=== PATIENT | male | born 1960 | race Caucasian/White ===

== ENCOUNTER 2017-02-24 12:14 | Emergency (ER) | payer OTHER ==
[~2017-02-24] VITALS: Ht 172.7 cm; Wt 88.5 kg
[~2017-02-24 12:14] MED LIST: ECO81 PO; LEXAPRO10 MG PO; MOTRIN800 MG PO; PRILOSEC20 MG PO
[2017-02-24 12:19] VITALS: BP 167/99
== END 2017-02-24 12:55 | disposition home or self-care (01) ==
LOC: ED 12:14
DX: H10.13 Acute atopic conjunctivitis, bilateral (principal); E11.9 Type 2 diabetes mellitus without complications; I10 Essential (primary) hypertension; E78.00 Pure hypercholesterolemia, unspecified; I25.10 Atherosclerotic heart disease of native coronary artery without angina pectoris; L80 Vitiligo

== ENCOUNTER 2017-03-30 09:31 | Inpatient (IN) | payer OTHER ==
[~2017-03-30] VITALS: Ht 170.2 cm; Wt 89.5 kg
[2017-03-30 10:46] LABS: BASOPHIL % 0.7 % (0-2); PLATELET COUNT 210 x10^3mcL (130-400); RED CELL DISTRIBUTION WIDTH 13.1 % (11.5-14.5)
[2017-03-30 11:00] LABS: FREE T4 1.12 ng/dL (0.76-1.46); FREE THYROXINE INDEX 2.2 ug/dL (1.4-4.5)
[2017-03-30 11:01] LABS: CALCIUM 8.3 mg/dL (8.5-10.1); CARBON DIOXIDE 25.7 mmol/L (21-32); CHLORIDE SERUM 105 mmol/L (98-107); CREATININE SERUM 0.7 mg/dL (0.7-1.3); GFR1 > 60 mL/min; GLUCOSE SERUM 168 mg/dL (74-106); POTASSIUM SERUM 3.6 mmol/L (3.5-5.1); SODIUM SERUM 138 mmol/L (136-145)
[2017-03-30 11:06] LABS: ALKALINE PHOSPHATASE 96 U/L (46-116); ALT/SGPT 14 U/L (16-63); AST/SGOT 10 U/L (15-37); BILIRUBIN TOTAL 0.5 mg/dL (0.20-1.00); CHOLESTEROL 139 mg/dL (<200); CHOLESTEROL/HDL RATIO 3.2; HDL CHOLESTEROL 44 mg/dL (40-60); LIPASE 85 IU/L (73-393); TOTAL PROTEIN, SERUM 6.2 g/dL (6.4-8.2); TRIGLYCERIDES 63 mg/dL (<150)
[2017-03-30 11:07] LABS: ALBUMIN 3.1 g/dL (3.4-5.0)
[2017-03-30 11:08] LABS: T3 TOTAL 0.99 ng/mL
[2017-03-30 13:21] LABS: PHOSPHOROUS 2.6 mg/dL (2.5-4.9)
[2017-03-30 13:58] LABS: microscopic required? NO
[2017-03-30 14:14] LABS: urine erythrocyte NEGATIVE (NEGATIVE)
[2017-03-30 14:34] LABS: AMPHETAMINE QUAL UR NONE DETECTED (NEG <=1000)
[2017-03-30] MEDS ORDERED: INSULIN (14:45)
[2017-03-30 15:08] VITALS: BP 146/97
[2017-03-30 17:14] VITALS: BP 146/97
[2017-03-30 17:41] VITALS: BP 139/90
[2017-03-30 22:05] VITALS: BP 150/92
[2017-03-31 05:05] VITALS: BP 118/70
[2017-03-31 07:40] LABS: BASOPHIL % 0.4 % (0-2); PLATELET COUNT 196 x10^3mcL (130-400); RED CELL DISTRIBUTION WIDTH 12.7 % (11.5-14.5)
[2017-03-31 07:43] VITALS: BP 132/88
[2017-03-31 08:00] LABS: CALCIUM 7.6 mg/dL (8.5-10.1); CARBON DIOXIDE 25.6 mmol/L (21-32); CHLORIDE SERUM 106 mmol/L (98-107); CREATININE SERUM 0.6 mg/dL (0.7-1.3); GFR1 > 60 mL/min; GLUCOSE SERUM 162 mg/dL (74-106); MAGNESIUM 2.1 mg/dL (1.8-2.4); PHOSPHOROUS 2.5 mg/dL (2.5-4.9); POTASSIUM SERUM 3.8 mmol/L (3.5-5.1); SODIUM SERUM 138 mmol/L (136-145)
[2017-03-31 17:04] VITALS: BP 122/80
[2017-03-31 21:25] VITALS: BP 124/70
[2017-04-01 05:17] VITALS: BP 140/87
[2017-04-01 06:17] LABS: BASOPHIL % 0.4 % (0-2); PLATELET COUNT 199 x10^3mcL (130-400); RED CELL DISTRIBUTION WIDTH 12.3 % (11.5-14.5)
[2017-04-01 06:19] LABS: CALCIUM 7.7 mg/dL (8.5-10.1); CARBON DIOXIDE 24.2 mmol/L (21-32); CHLORIDE SERUM 105 mmol/L (98-107); CREATININE SERUM 0.6 mg/dL (0.7-1.3); GFR1 > 60 mL/min; GLUCOSE SERUM 155 mg/dL (74-106); POTASSIUM SERUM 3.4 mmol/L (3.5-5.1); SODIUM SERUM 138 mmol/L (136-145)
[2017-04-01 06:20] LABS: ALBUMIN 2.5 g/dL (3.4-5.0)
[2017-04-01 08:06] VITALS: Ht 170.2 cm; Wt 89.5 kg
[2017-04-01 09:16] VITALS: BP 130/79
[2017-04-01] MEDS ORDERED: ATORVASTATIN CA40 M1 PO (14:54)
[2017-04-01] MEDS ORDERED: LAC15L PO (14:55)
[2017-04-01] MEDS ORDERED: COREG12.5 MG PO (14:55)
[2017-04-01] MEDS ORDERED: THERA TABS1 TAB PO (14:56)
[2017-04-01] MEDS ORDERED: GLU850 PO (14:56)
[2017-04-01] MEDS ORDERED: LAC PO (14:57)
[2017-04-01] MEDS ORDERED: FLA500 PO (14:58)
[2017-04-01] MEDS ORDERED: LEVAQUIN750 MG PO (14:58)
[2017-04-01 15:27] VITALS: BP 130/79
== END 2017-04-01 16:13 | disposition home or self-care (01) | DRG 244 ==
LOC: ED 09:31 → DU 12:19 → MU 12:19 → DU 14:37 → MU 03-31 19:16
PROVIDERS: Family Medicine; Specialist; ADMIT Family Medicine
DX: K57.32 Diverticulitis of large intestine without perforation or abscess without bleeding (principal); E43 Unspecified severe protein-calorie malnutrition; E11.65 Type 2 diabetes mellitus with hyperglycemia; K72.90 Hepatic failure, unspecified without coma; E11.9 Type 2 diabetes mellitus without complications; I10 Essential (primary) hypertension; D64.9 Anemia, unspecified; K21.9 Gastro-esophageal reflux disease without esophagitis; F32.9 Major depressive disorder, single episode, unspecified; F10.20 Alcohol dependence, uncomplicated; Y90.9 Presence of alcohol in blood, level not specified; E78.00 Pure hypercholesterolemia, unspecified; F17.210 Nicotine dependence, cigarettes, uncomplicated; L80 Vitiligo; E83.51 Hypocalcemia; E78.5 Hyperlipidemia, unspecified; E87.6 Hypokalemia; Z83.3 Family history of diabetes mellitus; Z68.30 Body mass index [BMI] 30.0-30.9, adult; Z82.49 Family history of ischemic heart disease and other diseases of the circulatory system
CPT/HCPCS: 82962; 83880; 84439; C9113; G0480; J1956; J2270; J2405; J2543; J3010; J3411; J3475; J3490; J7030; J7042; J7620; Q0092; Q9967

== ENCOUNTER 2017-07-28 16:30 | Emergency (ER) | payer OTHER ==
[~2017-07-28 16:30] MED LIST changes: +ATORVASTATIN CA40 M1 PO; +COREG12.5 MG PO; +FLA500 PO; +GLU850 PO; +INSULIN; +LAC PO; +LAC15L PO; +LEVAQUIN750 MG PO; +THERA TABS1 TAB PO
[2017-07-28 20:50] VITALS: BP 147/97
== END 2017-07-28 20:50 | disposition home or self-care (01) ==
LOC: ED 16:30
DX: S05.42XA Penetrating wound of orbit with or without foreign body, left eye, initial encounter (principal); I10 Essential (primary) hypertension; E11.9 Type 2 diabetes mellitus without complications; Z95.5 Presence of coronary angioplasty implant and graft; W22.8XXA Striking against or struck by other objects, initial encounter; Y93.89 Activity, other specified; Y99.8 Other external cause status; Y92.89 Other specified places as the place of occurrence of the external cause
CPT/HCPCS: 90714

== ENCOUNTER 2017-09-25 17:54 | Emergency (ER) | payer OTHER ==
[2017-09-25 20:52] VITALS: BP 145/99
== END 2017-09-25 22:11 | disposition home or self-care (01) ==
LOC: ED 17:54
DX: S40.022A Contusion of left upper arm, initial encounter (principal); I25.10 Atherosclerotic heart disease of native coronary artery without angina pectoris; E11.9 Type 2 diabetes mellitus without complications; I10 Essential (primary) hypertension; E78.00 Pure hypercholesterolemia, unspecified; L80 Vitiligo; F17.210 Nicotine dependence, cigarettes, uncomplicated; Z95.5 Presence of coronary angioplasty implant and graft; Z79.4 Long term (current) use of insulin; W20.8XXA Other cause of strike by thrown, projected or falling object, initial encounter; Y93.89 Activity, other specified; Y92.89 Other specified places as the place of occurrence of the external cause; Y99.8 Other external cause status

== ENCOUNTER 2018-03-17 12:10 | Emergency (ER) | payer OTHER ==
[~2018-03-17] VITALS: Ht 165.1 cm; Wt 90.0 kg
[2018-03-17 12:14] VITALS: Ht 165.1 cm; Wt 90.0 kg
[2018-03-17 13:02] VITALS: BP 140/89
== END 2018-03-17 13:02 | disposition home or self-care (01) ==
LOC: ED 12:10
DX: A60.01 Herpesviral infection of penis (principal); I10 Essential (primary) hypertension; E11.9 Type 2 diabetes mellitus without complications

== ENCOUNTER 2018-05-28 08:29 | Inpatient (IN) | payer OTHER ==
[~2018-05-28] VITALS: Ht 167.6 cm; Wt 83.5 kg
[2018-05-28 08:35] VITALS: Ht 167.6 cm; Wt 83.5 kg
[2018-05-28 09:49] LABS: BASOPHIL % 1.6 % (0-2); PLATELET COUNT 142 x10^3mcL (130-400)
[2018-05-28 10:09] LABS: CALCIUM 7.1 mg/dL (8.5-10.1); CARBON DIOXIDE 17.4 mmol/L (21-32); CHLORIDE SERUM 101 mmol/L (98-107); CREATININE SERUM 0.6 mg/dL (0.7-1.3); GFR1 > 60 mL/min; GLUCOSE SERUM 404 mg/dL (74-106); POTASSIUM SERUM 3.5 mmol/L (3.5-5.1); SODIUM SERUM 132 mmol/L (136-145)
[2018-05-28 10:12] LABS: microscopic required? NO
[2018-05-28 10:15] LABS: ALKALINE PHOSPHATASE 323 U/L (46-116); AMYLASE 25 U/L (25-115); BILIRUBIN TOTAL 0.6 mg/dL (0.20-1.00); CHOLESTEROL 176 mg/dL (<200); LIPASE 127 IU/L (73-393)
[2018-05-28 10:22] LABS: ALBUMIN 2.2 g/dL (3.4-5.0); HDL CHOLESTEROL 14 mg/dL (40-60); TOTAL PROTEIN, SERUM 5.7 g/dL (6.4-8.2)
[2018-05-28 10:40] LABS: urine erythrocyte NEGATIVE (NEGATIVE)
[2018-05-28 11:03] LABS: ALT/SGPT 21 U/L (16-63); AST/SGOT 32 U/L (15-37)
[2018-05-28 11:17] LABS: AMPHETAMINE QUAL UR NONE DETECTED (See below)
[2018-05-28 11:22] LABS: MAGNESIUM 1.7 mg/dL (1.8-2.4); PHOSPHOROUS 3.3 mg/dL (2.5-4.9)
[2018-05-28] MEDS ORDERED: LANTUS SOLOS100 U/M1 SC (11:23)
[2018-05-28] MEDS ORDERED: METFORMIN HCL750 MG PO (11:23)
[2018-05-28 11:33] LABS: FREE T4 1.18 ng/dL (0.76-1.46); T3 TOTAL 0.63 ng/mL
[2018-05-28 11:53] LABS: FREE THYROXINE INDEX 1.3 ug/dL (1.4-4.5)
[2018-05-28 12:11] VITALS: BP 143/104
[2018-05-28 18:54] VITALS: BP 132/83
[2018-05-28 21:23] VITALS: BP 127/78
[2018-05-29 05:54] VITALS: BP 114/79
[2018-05-29 06:48] LABS: BASOPHIL % 0.7 % (0-2)
[2018-05-29 06:55] LABS: PLATELET COUNT 122 x10^3mcL (130-400); RED CELL DISTRIBUTION WIDTH 14.9 % (11.5-14.5)
[2018-05-29 07:10] LABS: CALCIUM 7.4 mg/dL (8.5-10.1); CARBON DIOXIDE 22.7 mmol/L (21-32); CHLORIDE SERUM 106 mmol/L (98-107); CREATININE SERUM 0.5 mg/dL (0.7-1.3); GFR1 > 60 mL/min; GLUCOSE SERUM 96 mg/dL (74-106); MAGNESIUM 1.6 mg/dL (1.8-2.4); PHOSPHOROUS 3.1 mg/dL (2.5-4.9); SODIUM SERUM 137 mmol/L (136-145)
[2018-05-29 07:35] LABS: POTASSIUM SERUM 2.9 mmol/L (3.5-5.1)
[2018-05-29 10:07] VITALS: BP 118/63
[2018-05-29 14:05] VITALS: BP 122/60
[2018-05-29 17:21] VITALS: BP 116/60
[2018-05-29 18:56] LABS: CALCIUM 7.8 mg/dL (8.5-10.1); CARBON DIOXIDE 22.9 mmol/L (21-32); CHLORIDE SERUM 103 mmol/L (98-107); GFR1 > 60 mL/min; GLUCOSE SERUM 272 mg/dL (74-106); POTASSIUM SERUM 3.7 mmol/L (3.5-5.1); SODIUM SERUM 133 mmol/L (136-145)
[2018-05-29 21:26] VITALS: BP 123/66
[2018-05-30 05:26] VITALS: BP 127/84
[2018-05-30 07:25] LABS: BASOPHIL % 0.7 % (0-2)
[2018-05-30 07:28] LABS: PLATELET COUNT 125 x10^3mcL (130-400)
[2018-05-30 07:52] LABS: CALCIUM 7.6 mg/dL (8.5-10.1); CARBON DIOXIDE 24.6 mmol/L (21-32); CHLORIDE SERUM 106 mmol/L (98-107); CREATININE SERUM 0.7 mg/dL (0.7-1.3); GFR1 > 60 mL/min; GLUCOSE SERUM 171 mg/dL (74-106); MAGNESIUM 1.7 mg/dL (1.8-2.4); PHOSPHOROUS 3.3 mg/dL (2.5-4.9); POTASSIUM SERUM 3.3 mmol/L (3.5-5.1); SODIUM SERUM 139 mmol/L (136-145)
[2018-05-30 08:33] VITALS: BP 132/83
[2018-05-30 13:37] VITALS: BP 119/70; BP 132/83
[2018-05-30] MEDS ORDERED: LEVEMIR100 U/M1 SC (14:30)
[2018-05-30] MEDS ORDERED: RELION NOVOL100 U/M1 IJ (14:35)
[2018-05-30] MEDS ORDERED: LIPI10 PO (14:36)
== END 2018-05-30 15:33 | disposition home or self-care (01) | DRG 203 ==
LOC: ED 08:29 → DU 10:33
PROVIDERS: Emergency Medicine; Family Medicine
DX: M94.0 Chondrocostal junction syndrome [Tietze] (principal); E43 Unspecified severe protein-calorie malnutrition; E11.65 Type 2 diabetes mellitus with hyperglycemia; E83.42 Hypomagnesemia; B37.49 Other urogenital candidiasis; E87.1 Hypo-osmolality and hyponatremia; I10 Essential (primary) hypertension; F32.9 Major depressive disorder, single episode, unspecified; E78.00 Pure hypercholesterolemia, unspecified; F10.20 Alcohol dependence, uncomplicated; Y90.9 Presence of alcohol in blood, level not specified; E78.1 Pure hyperglyceridemia; N49.2 Inflammatory disorders of scrotum; F17.210 Nicotine dependence, cigarettes, uncomplicated; F41.9 Anxiety disorder, unspecified; Z95.5 Presence of coronary angioplasty implant and graft; Z79.82 Long term (current) use of aspirin; Z83.3 Family history of diabetes mellitus; Z82.49 Family history of ischemic heart disease and other diseases of the circulatory system; Z68.29 Body mass index [BMI] 29.0-29.9, adult
CPT/HCPCS: 36600; 82962; 83880; 84439; 99406; G0480; J1815; J3480; J7030; Q0092

== ENCOUNTER 2018-08-12 12:27 | Emergency (ER) | payer OTHER ==
[~2018-08-12] VITALS: Ht 172.7 cm; Wt 90.7 kg
[~2018-08-12 12:27] MED LIST changes: +LANTUS SOLOS100 U/M1 SC; +LEVEMIR100 U/M1 SC; +LIPI10 PO; +METFORMIN HCL750 MG PO; +RELION NOVOL100 U/M1 IJ
[2018-08-12 12:41] VITALS: Ht 172.7 cm; Wt 90.7 kg
[2018-08-12 14:19] LABS: BASOPHIL % 0.5 % (0-2); PLATELET COUNT 204 x10^3mcL (130-400); RED CELL DISTRIBUTION WIDTH 13.8 % (11.5-14.5)
[2018-08-12 14:32] LABS: CALCIUM 8.4 mg/dL (8.5-10.1); CHLORIDE SERUM 103 mmol/L (98-107); CREATININE SERUM 1.2 mg/dL (0.7-1.3); GFR1 > 60 mL/min; GLUCOSE SERUM 150 mg/dL (74-106); POTASSIUM SERUM 3.9 mmol/L (3.5-5.1); SODIUM SERUM 135 mmol/L (136-145)
[2018-08-12 14:37] LABS: ALBUMIN 3.5 g/dL (3.4-5.0); ALKALINE PHOSPHATASE 113 U/L (46-116); ALT/SGPT 35 U/L (16-63); AST/SGOT 26 U/L (15-37); BILIRUBIN TOTAL 0.3 mg/dL (0.20-1.00); TOTAL PROTEIN, SERUM 7.4 g/dL (6.4-8.2)
[2018-08-12 15:06] VITALS: BP 129/80
== END 2018-08-12 15:06 | disposition home or self-care (01) ==
LOC: ED 12:27
PROVIDERS: Emergency Medicine
DX: R53.1 Weakness (principal); R11.0 Nausea; R42 Dizziness and giddiness; R06.02 Shortness of breath; I10 Essential (primary) hypertension; E11.9 Type 2 diabetes mellitus without complications; Z95.5 Presence of coronary angioplasty implant and graft
CPT/HCPCS: 82962; J7030; Q0092

== ENCOUNTER 2018-08-26 09:17 | Emergency (ER) | payer OTHER ==
[~2018-08-26] VITALS: Ht 167.6 cm; Wt 87.5 kg
[2018-08-26 09:31] VITALS: Ht 167.6 cm; Wt 87.5 kg
[2018-08-26 10:33] LABS: microscopic required? NO
[2018-08-26 10:42] LABS: CHLORIDE SERUM 102 mmol/L (98-107); CREATININE SERUM 0.9 mg/dL (0.7-1.3); GFR1 > 60 mL/min; GLUCOSE SERUM 161 mg/dL (74-106); POTASSIUM SERUM 3.2 mmol/L (3.5-5.1); SODIUM SERUM 134 mmol/L (136-145)
[2018-08-26 10:43] LABS: UA SPECIFIC GRAVITY >=1.030 (1.005-1.035); urine erythrocyte NEGATIVE (NEGATIVE)
[2018-08-26 10:43] LABS: BASOPHIL % 0.4 % (0-2); PLATELET COUNT 181 x10^3mcL (130-400); RED CELL DISTRIBUTION WIDTH 13.6 % (11.5-14.5)
[2018-08-26 10:47] LABS: ALKALINE PHOSPHATASE 131 U/L (46-116); ALT/SGPT 10 U/L (16-63); AST/SGOT 22 U/L (15-37); BILIRUBIN TOTAL 0.51 mg/dL (0.20-1.00); LIPASE 79 IU/L (73-393); TOTAL PROTEIN, SERUM 6.9 g/dL (6.4-8.2)
[2018-08-26 10:53] LABS: ALBUMIN 3.2 g/dL (3.4-5.0)
[2018-08-26 11:50] VITALS: BP 141/91
== END 2018-08-26 11:50 | disposition home or self-care (01) ==
LOC: ED 09:17
PROVIDERS: Emergency Medicine
DX: R11.2 Nausea with vomiting, unspecified (principal); E11.9 Type 2 diabetes mellitus without complications; F32.9 Major depressive disorder, single episode, unspecified; Z98.61 Coronary angioplasty status
CPT/HCPCS: 82962; J2405; J3490; J7030

== ENCOUNTER 2018-09-17 10:03 | Emergency (ER) | payer OTHER ==
[~2018-09-17] VITALS: Ht 165.1 cm; Wt 90.7 kg
[2018-09-17 10:18] VITALS: BP 160/101; Ht 165.1 cm; Wt 90.7 kg
== END 2018-09-17 11:52 | disposition home or self-care (01) ==
LOC: ED 10:03
DX: S91.332A Puncture wound without foreign body, left foot, initial encounter (principal); I10 Essential (primary) hypertension; E11.9 Type 2 diabetes mellitus without complications; F32.9 Major depressive disorder, single episode, unspecified; F17.210 Nicotine dependence, cigarettes, uncomplicated; Z95.5 Presence of coronary angioplasty implant and graft; W22.8XXA Striking against or struck by other objects, initial encounter; Y93.89 Activity, other specified; Y92.89 Other specified places as the place of occurrence of the external cause; Y99.8 Other external cause status
CPT/HCPCS: Q0092

== ENCOUNTER 2018-09-29 12:00 | Emergency (ER) | payer OTHER ==
[~2018-09-29] VITALS: Ht 170.2 cm; Wt 91.6 kg
[2018-09-29 12:16] VITALS: BP 115/67; Ht 170.2 cm; Wt 91.6 kg
== END 2018-09-29 13:45 | disposition home or self-care (01) ==
LOC: ED 12:00
DX: L84 Corns and callosities (principal); I10 Essential (primary) hypertension; E11.9 Type 2 diabetes mellitus without complications; F32.9 Major depressive disorder, single episode, unspecified; Z95.5 Presence of coronary angioplasty implant and graft
CPT/HCPCS: J2001; Q0092

== ENCOUNTER 2019-07-14 11:34 | Inpatient (IN) | payer OTHER ==
[~2019-07-14] VITALS: Ht 167.6 cm; Wt 90.7 kg
[2019-07-14 11:37] VITALS: Ht 167.6 cm; Wt 90.7 kg
--- NOTE | 2019-07-14 11:39 | NUR ---
PLACED IN BED 12 FOR EVAL AND BEDSIDE EKG.
--- NOTE | 2019-07-14 11:48 | NUR ---
PT PRESENTS TO ED WITH C/C OF CHEST PAIN SINCE LAST NIGHT WITH LEFT ARM PAIN X1 MONTH. 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 PT REPORTS HE SMOKES ONE PACK OF CIGARRETTES A DAY, AND DRINKS APPROX 3 BEERS EVERYDAY. PT IS AWAKE, AAOX4, RESP E/U, SPEAKING IN CLEAR FULL SENTENCES WITH . NAD NOTED. DR. ROSEN AT BEDSIDE COMPLETING MSE.
[2019-07-14 12:06] LABS: BASOPHIL % 0.5 % (0-2); PLATELET COUNT 188 x10^3mcL (130-400); RED CELL DISTRIBUTION WIDTH 12.4 % (11.5-14.5)
[2019-07-14 12:16] LABS: CALCIUM 8.1 mg/dL (8.5-10.1); CARBON DIOXIDE 23.2 mmol/L (21-32); CHLORIDE SERUM 104 mmol/L (98-107); CREATININE SERUM 0.9 mg/dL (0.7-1.3); GFR1 > 60 mL/min; GLUCOSE SERUM 238 mg/dL (74-106); POTASSIUM SERUM 3.6 mmol/L (3.5-5.1); SODIUM SERUM 139 mmol/L (136-145)
[2019-07-14 12:20] LABS: ALBUMIN 3.4 g/dL (3.4-5.0); ALKALINE PHOSPHATASE 109 U/L (46-116); ALT/SGPT 25 U/L (16-63); AST/SGOT 14 U/L (15-37); BILIRUBIN TOTAL 0.3 mg/dL (0.20-1.00); LIPASE 85 IU/L (73-393); TOTAL PROTEIN, SERUM 6.6 g/dL (6.4-8.2)
--- NOTE | 2019-07-14 12:20 | NUR ---
PT MEDICATED PER MD ORDER. PT VERBALIZED UNDERSTANDING OF MEDICATION PRIOR TO ADMINISTRATION.
--- NOTE | 2019-07-14 13:41 | NUR ---
PT IS AWAKE, AAOX4, SPEAKING IN FULL CLEAR SENTENCES. PT IS REQUESTING PAIN MEDICATION AT THIS TIME FOR HIS LEFT ARM PAIN. MADE AWARE.
--- NOTE | 2019-07-14 13:59 | NUR ---
PT MEDICATED PER MD ORDER. PT VERBALIZED UNDERSTANDING OF MEDICATION PRIOR TO ADMINISTRATION. PT VERBALIZED UNDERSTANDING AND AGREEMENT TO ADMISSION.
[2019-07-14] MEDS ORDERED: LANTUS SOLOS100 U/M1 PO (14:02)
--- NOTE | 2019-07-14 14:21 | NUR ---
REPORT GIVEN TO TELECOMM[employer]ICATIONS NETWORK ENGINEER LYNN TO ASSUME CARE FOR PT.
--- NOTE | 2019-07-14 14:31 | NUR ---
PT TRANSFERRED TO TELE UNIT VIA GURNEY, BY EMT JODI AND MYSELF. PT IS AWAKE, AAOX4, SPEAKING IN FULL, CLEAR SENTENCES, RESP E/U, NAD NOTED.
[2019-07-14 14:46] VITALS: BP 136/81
[2019-07-14 14:52] LABS: CHOLESTEROL/HDL RATIO 4.8
--- NOTE | 2019-07-14 14:58 | NUR ---
RECEIVED PT FROM ER, PT ADMIT FOR CHEST PAIN, PT IS A/O X4, VERBAL RESPONSIVE, LUNG SOUND CLEAR BILATERAL, NO COUGH, NO SOB,. PT IS ON TELE 31, NSR, C/O MILD PAIN 2/10, RADIATE TO LEFT ARM, BOWEL SOUND PRESENT ALL 4 QUADRANTS, NO DISTENTION, NO TENDER. PEDAL PULSE PRESENT BOTH FEET, NO EDEMA, IV AT RIGHT HAND, NO LEAKING, NO INFILTRATION. ALL ADLS ASSIST, ALL NEED MET, CALL LIGHT IN REACH, WILL CONTINUE TO MONITOR.
[2019-07-14 16:58] VITALS: BP 124/81
--- NOTE | 2019-07-14 18:31 | NUR ---
THE PATIENT VOIDED; THE URINE SPECIMEN WAS COLLECTED AND SENT TO THE LAB FOR UA AND UDS.
[2019-07-14 18:34] LABS: microscopic required? NO
[2019-07-14 18:41] LABS: UA SPECIFIC GRAVITY >=1.030 (1.005-1.035); urine erythrocyte NEGATIVE (NEGATIVE)
[2019-07-14 18:50] LABS: AMPHETAMINE QUAL UR NONE DETECTED (See below)
--- NOTE | 2019-07-14 19:30 | NUR ---
PT IS A/O x4. ON TELE #31, NSR. DENIES ANY CHEST PAIN OR PRESSURE. PULSES ARE PRESENT. NO EDEMA NOTED. LUNGS CLEAR IN ALL FEILDS. ON RA, DENIES ANY SOB. EQUAL CHEST RISE AND FALL. NO SIGN OF RESP DISTRESS. BOWEL SOUNDS PRESENT X4. DENIES ANY ABD PAIN OR DISTRESS. AMBULATES FREELY. IV ON RH IS PATENT AND INTACT. NO SIGN OF INFILTRATION OR IRRITATION NOTED. BED IS AT LOWEST SETTING. CALL LIGHT WITHIN REACH. IS AT BEDSIDE. WILL CONTINUE TO [facility].
[2019-07-14 20:52] VITALS: BP 137/75
--- NOTE | 2019-07-15 02:05 | NUR ---
PT IS RESTING IN BED WITH BOTH EYES CLOSED. BREATHING EVEN AND UNLABORED. NO SIGN OF DISTRESS NOTED. IS AT BEDSIDE. BED IS AT LOWEST SETTING. CALL LIGHT WITHIN REACH. WILL CONTINUE TO MONITOR.
[2019-07-15 04:45] VITALS: BP 130/86
[2019-07-15 05:13] LABS: BASOPHIL % 0.5 % (0-2); PLATELET COUNT 178 x10^3mcL (130-400); RED CELL DISTRIBUTION WIDTH 12.3 % (11.5-14.5)
[2019-07-15 05:32] LABS: CALCIUM 7.6 mg/dL (8.5-10.1); CARBON DIOXIDE 24.1 mmol/L (21-32); CHLORIDE SERUM 106 mmol/L (98-107); CREATININE SERUM 0.7 mg/dL (0.7-1.3); GFR1 > 60 mL/min; GLUCOSE SERUM 164 mg/dL (74-106); MAGNESIUM 1.7 mg/dL (1.8-2.4); SODIUM SERUM 142 mmol/L (136-145)
--- NOTE | 2019-07-15 06:28 | NUR ---
PT IS RESTING IN BED. DENIES ANY CP OR OTHER DISTRESS. DENIES ANY SOB. NO ACUTE EVENT OCCURED AT NIGHT. BED IS AT LOWEST SETTING. CALL LIGHT WITHIN REACH. AT BEDSIDE ALL NIGHT. WILL ENDORSE TO AM NURSE.
--- NOTE | 2019-07-15 07:40 | NUR ---
PATIENT AWAKE AND ALERT; ORIENTED TO PERSON, PLACE AND TIME. PATIENT DENIES ANY PAIN, NAUSEA/VOMITING OR SHORTNESS OF BREATH. IVF NS VIA IV SITE AT RIGHT HAND. TELE # 31 READS SINUS RHYTHMS AT THIS TIME. CALL LIGHT WITHIN REACH. SIDE RAILS UP X3. BED IS AT LOWEST POSITION. THE IS AT BEDSIDE.
[2019-07-15 08:55] VITALS: BP 129/76
[2019-07-15 12:53] VITALS: BP 125/80
[2019-07-15 17:11] VITALS: BP 129/69
--- NOTE | 2019-07-15 18:58 | NUR ---
PATIENT DENIES ANY CHEST PAIN THROUGHOUT THE SHIFT. DR. LEO WAS NOTIFIED EARLIER OF MAG LEVEL 1.7 THIS MORNING.
--- NOTE | 2019-07-15 19:48 | NUR ---
RECEIVED AWAJE AND ALERT WATCHING TV. SKIN WARM AN DDRY TO TOUCH. RESPIRATUON EVEN AND UNLABORED. ON TELE #31 WITH SR. DENIES ANY CHEST PAIN/DISCOMFORT. AT BEDSIDE VERY SUPPORTIVE OF PATIENT'S PLAN OF CARE. PLACED CALL LIGHT WITHIN REACH. WILL CONTINUE TO MONITOR.
[2019-07-15 20:38] VITALS: BP 113/63
[2019-07-15] MEDS ORDERED: METOPROLOL TART25 M1 PO (22:05)
--- NOTE | 2019-07-16 00:01 | NUR ---
RESTING IN BED WITH EYES CLOSED, RESPIRATION EVEN AND UNLABORED. NO S/S OF ACUTE DSITRESS. CALL LIGHT WITHIN REACH. FAMILY AT BEDSIDE VERY SUPPORTIVE OF PATIENT'S CURRENT PLAN OF CARE.
[2019-07-16 05:08] VITALS: BP 107/62
--- NOTE | 2019-07-16 05:24 | NUR ---
DENIES ANY PAIN/DISCOMFORT AT THIS TIME. ALL NEEDS ATTENDED.
--- NOTE | 2019-07-16 07:20 | NUR ---
RECEIVED PT FROM [facility] SHIFT NURSE, INFORMED THAT PT IS TO BE DISCHARGED AFTER BREAKFAST, DC ORDERS ALREADY PLACED. PT RESTING IN BED, AXO4, RESP E/U ON RA. DENIES CHEST PAIN AT THIS TIME, NO ACUTE DISTRESS NOTED. IV TO R HAND W/ NO SIGNS OF INFILTRATION, IVF INFUSING WELL. BED IN LOWEST POSITION AND CALL LIGHT WITHIN REACH. FAMILY MEMBER AT BEDSIDE. WILL CONTINUE TO MONITOR.
[2019-07-16 09:17] VITALS: BP 130/87
[2019-07-16 10:16] VITALS: BP 130/87
--- NOTE | 2019-07-16 11:25 | NUR ---
PT DISCHARGED. REVIEWED VISIT SUMMARY, FOLLOW UP INSTRUCTIONS, EDUCATIONAL PACKET AND NEW RX MEDS W/ PT. PT AOX4, RESP E/U ON RA, VS STABLE, DENIES CP. IV TO R HAND REMOVED, CATH INTACT, GAUZE DRESSING APPLIED. PT AMBULATORY TO DISCHARGE OFFICE, ESCORTED BY SHERI CONNER W/ NO ACUTE INCIDENCE.
== END 2019-07-16 11:25 | disposition home or self-care (01) | DRG 198 ==
LOC: ED 11:34 → DU 13:55
PROVIDERS: Emergency Medicine; ADMIT Internal Medicine
DX: R07.89 Other chest pain (principal); I25.10 Atherosclerotic heart disease of native coronary artery without angina pectoris; E11.65 Type 2 diabetes mellitus with hyperglycemia; E83.51 Hypocalcemia; I10 Essential (primary) hypertension; F10.20 Alcohol dependence, uncomplicated; F32.9 Major depressive disorder, single episode, unspecified; E78.00 Pure hypercholesterolemia, unspecified; E78.5 Hyperlipidemia, unspecified; E78.1 Pure hyperglyceridemia; Y90.0 Blood alcohol level of less than 20 mg/100 ml; F17.210 Nicotine dependence, cigarettes, uncomplicated; Z79.4 Long term (current) use of insulin; Z68.29 Body mass index [BMI] 29.0-29.9, adult; Z95.5 Presence of coronary angioplasty implant and graft; Z91.14 Patient's other noncompliance with medication regimen; Z79.82 Long term (current) use of aspirin; Z83.3 Family history of diabetes mellitus; Z82.49 Family history of ischemic heart disease and other diseases of the circulatory system
CPT/HCPCS: 82962; 83880; G0378; J1815; J1885; J7030; Q0092

== ENCOUNTER 2019-10-18 09:27 | Emergency (ER) | payer OTHER ==
[~2019-10-18] VITALS: Ht 167.6 cm; Wt 85.5 kg
[~2019-10-18 09:27] MED LIST changes: +LANTUS SOLOS100 U/M1 PO; +METOPROLOL TART25 M1 PO
[2019-10-18 09:35] VITALS: Ht 167.6 cm; Wt 85.5 kg
[2019-10-18 10:39] LABS: BASOPHIL % 0.4 % (0-2); PLATELET COUNT 239 x10^3mcL (130-400); RED CELL DISTRIBUTION WIDTH 12.9 % (11.5-14.5)
[2019-10-18 11:08] LABS: ALKALINE PHOSPHATASE 106 U/L (46-116); ALT/SGPT 20 U/L (16-63); AST/SGOT 8 U/L (15-37); BILIRUBIN TOTAL 0.36 mg/dL (0.20-1.00); CALCIUM 8.4 mg/dL (8.5-10.1); CARBON DIOXIDE 23.4 mmol/L (21-32); CHLORIDE SERUM 100 mmol/L (98-107); CREATININE SERUM 0.7 mg/dL (0.7-1.3); GFR1 > 60 mL/min; GLUCOSE SERUM 239 mg/dL (74-106); LIPASE 74 IU/L (73-393); POTASSIUM SERUM 3.8 mmol/L (3.5-5.1); SODIUM SERUM 134 mmol/L (136-145); TOTAL PROTEIN, SERUM 7.3 g/dL (6.4-8.2)
[2019-10-18 11:15] LABS: ALBUMIN 3.2 g/dL (3.4-5.0)
[2019-10-18 13:01] VITALS: BP 123/77
== END 2019-10-18 13:01 | disposition home or self-care (01) ==
LOC: ED 09:27
PROVIDERS: Emergency Medicine
DX: K57.32 Diverticulitis of large intestine without perforation or abscess without bleeding (principal); I10 Essential (primary) hypertension; E11.9 Type 2 diabetes mellitus without complications; Z95.1 Presence of aortocoronary bypass graft
CPT/HCPCS: J1885; J2270

== ENCOUNTER 2020-02-06 07:25 | Emergency (ER) | payer OTHER ==
[~2020-02-06] VITALS: Ht 167.6 cm; Wt 84.4 kg
[2020-02-06 07:31] VITALS: Ht 167.6 cm; Wt 84.4 kg
[2020-02-06 08:21] VITALS: BP 136/81
== END 2020-02-06 08:21 | disposition home or self-care (01) ==
LOC: ED 07:25
DX: M19.021 Primary osteoarthritis, right elbow (principal); M79.642 Pain in left hand; F17.210 Nicotine dependence, cigarettes, uncomplicated; I10 Essential (primary) hypertension; E11.9 Type 2 diabetes mellitus without complications; Z71.6 Tobacco abuse counseling; Z95.5 Presence of coronary angioplasty implant and graft
CPT/HCPCS: 99406; Q0092

== ENCOUNTER 2020-04-18 08:40 | Emergency (ER) | payer OTHER ==
[~2020-04-18] VITALS: Ht 165.1 cm; Wt 84.4 kg
[2020-04-18 08:51] VITALS: Ht 165.1 cm; Wt 84.4 kg
[2020-04-18 09:20] LABS: microscopic required? NO
[2020-04-18 09:37] LABS: CALCIUM 8.4 mg/dL (8.5-10.1); CARBON DIOXIDE 22.9 mmol/L (21-32); CHLORIDE SERUM 103 mmol/L (98-107); CREATININE SERUM 0.6 mg/dL (0.7-1.3); GFR1 > 60 mL/min; GLUCOSE SERUM 128 mg/dL (74-106); POTASSIUM SERUM 3.8 mmol/L (3.5-5.1); SODIUM SERUM 137 mmol/L (136-145)
[2020-04-18 09:41] LABS: ALBUMIN 3.7 g/dL (3.4-5.0); ALKALINE PHOSPHATASE 102 U/L (46-116); ALT/SGPT 20 U/L (16-63); AST/SGOT 15 U/L (15-37); BILIRUBIN TOTAL 0.5 mg/dL (0.20-1.00); CHOLESTEROL 159 mg/dL (<200); CHOLESTEROL/HDL RATIO 4.4; HDL CHOLESTEROL 36 mg/dL (40-60); TOTAL PROTEIN, SERUM 7.2 g/dL (6.4-8.2); TRIGLYCERIDES 83 mg/dL (<150)
[2020-04-18 09:45] LABS: UA SPECIFIC GRAVITY 1.015 (1.005-1.035); urine erythrocyte NEGATIVE (NEGATIVE)
[2020-04-18 10:01] LABS: BASOPHIL % 0.4 % (0-2); PLATELET COUNT 196 x10^3mcL (130-400); RED CELL DISTRIBUTION WIDTH 12.9 % (11.5-14.5)
[2020-04-18 11:00] VITALS: BP 133/75
== END 2020-04-18 11:00 | disposition home or self-care (01) ==
LOC: ED 08:40
PROVIDERS: Specialist
DX: G89.18 Other acute postprocedural pain (principal); R10.30 Lower abdominal pain, unspecified; I10 Essential (primary) hypertension; E11.9 Type 2 diabetes mellitus without complications
CPT/HCPCS: 36415

== ENCOUNTER 2020-06-27 11:28 | Emergency (ER) | payer OTHER ==
[~2020-06-27] VITALS: Ht 167.6 cm; Wt 87.1 kg
[2020-06-27 11:29] VITALS: Ht 167.6 cm; Wt 87.1 kg
[2020-06-27 12:02] VITALS: BP 136/76
== END 2020-06-27 12:02 | disposition home or self-care (01) ==
LOC: ED 11:28
DX: M25.531 Pain in right wrist (principal); M79.631 Pain in right forearm; M13.0 Polyarthritis, unspecified; I10 Essential (primary) hypertension; E11.9 Type 2 diabetes mellitus without complications
CPT/HCPCS: J1885

== ENCOUNTER 2020-09-12 09:18 | Emergency (ER) | payer OTHER ==
[~2020-09-12] VITALS: Ht 167.6 cm; Wt 81.2 kg
[2020-09-12 09:28] VITALS: Ht 167.6 cm; Wt 81.2 kg
[2020-09-12 10:00] VITALS: BP 156/84
== END 2020-09-12 10:01 | disposition home or self-care (01) ==
LOC: ED 09:18
DX: G56.01 Carpal tunnel syndrome, right upper limb (principal); I10 Essential (primary) hypertension; E11.9 Type 2 diabetes mellitus without complications

== ENCOUNTER 2020-12-04 09:20 | Emergency (ER) | payer OTHER ==
[~2020-12-04] VITALS: Ht 165.1 cm; Wt 86.6 kg
[2020-12-04 09:30] VITALS: Ht 165.1 cm; Wt 86.6 kg
[2020-12-04] MEDS ORDERED: NOR10T PO (11:39)
[2020-12-04 11:47] VITALS: BP 149/92
== END 2020-12-04 11:47 | disposition home or self-care (01) ==
LOC: ED 09:20
DX: G89.29 Other chronic pain (principal); M79.602 Pain in left arm; M79.601 Pain in right arm; M54.5 Low back pain; I10 Essential (primary) hypertension; E11.9 Type 2 diabetes mellitus without complications; G56.00 Carpal tunnel syndrome, unspecified upper limb